=== PATIENT | female | born 1950 | race Caucasian/White ===

== ENCOUNTER → 2019-04-02 | Outpatient (CLI) | payer MEDICARE, OTHER ==
[~2019-04-02] MED LIST: CEP500 PO; CLON1 PO; ESTR-25 PO; FLUO-202 PO; IBUP200C72 PO; LOR5/325 PO; NAB500 PO; PER PO; PIO15 PO; SERT25TA87 PO; ZOL5 PO
--- NOTE | 2019-04-02 16:04 | RADIOLOGY IMAGING REPORT ---
FACILITY: [facility] - [place] PATIENT NAME: Brooke Swain : 1950 MR: [id number] V: [id number] EXAM DATE: ORDERING PHYSICIAN: LEONELA DORSEY TECHNOLOGIST: Location: [facility] [place] Patient: Brooke Swain : 1950 Visit/Account:[id number] Date of Sevice: 04/02/2019 DEXA Scan Clinical history: Postmenopausal state. Comparison: DEXA scan from 11/24/2012. LUMBAR SPINE: The bone mineral density (BMD) measured from L1-L4 correlates with a Z-score of 2.5 and a T-score of 1 which is Normal as defined by the World Health Organization. The corresponding risk of fracture in the lumbar spine is Not increased compared with a young adult reference population. This value has increased by 0.2 % since the prior study. More than 5% change is considered significant. HIP: Bone mineral density (BMD) measured in the LEFT total hip region correlates with a Z-score 0.7 and a T-score of -0.5 which is normal as defined by the World Health Organization. The corresponding risk of fracture in the hip is 1-2 t imes increased compared to a young adult reference population. This value has decrease by 5.4 % since the prior study. More than 5% change is considered significant. T score left femoral neck -1.2 Bone mineral density (BMD) measured in the Femoral Neck region measures 0.878 g/cm?. IMPRESSION: 1. Lumbar spine: Normal. There has been 0.2% increase in the bone mineral density since the previou s exam. 2. Left Total Hip: Normal. There has been 5.4% decrease in the bone mineral density since the previ ous exam. 3. Femoral Neck: Bone Mineral Density is 0.878 g/cm? The next DEXA scan of this patient should include the following sites: L1-L4 and the left hip. FRAX? WHO Fracture Risk Assessment Tool link: <http://www.shef.ac.uk/FRAX/tool.jsp?locationValue=9> PLEASE NOTE: 1) The World Health Organization defines low BMD as follows: T-score Normal > -1 Osteopenia < -1 and > -2.5 Osteoporosis < -2.5 without fractures Established osteoporosis < -2.5 with fractures 2) In general, you may wish to consider: Diagnosis Treatment Follow-up DEXA Normal BMD Prevention 2-3 years Osteopenia Prevention/therapy 1-2 years Osteoporosis Therapy Yearly 3) Fracture risk estimated from the T-score is more accurate for vertebral fractures (often spontane ous) than for hip fractures. Report Dictated By: Roxana Carlson MD at 04/02/2019 3:54 PM Report E-Signed By: Roxana Carlson MD at 04/02/2019 3:56 PM WSN:[email or web address]
== END ==
LOC: RAD 13:29
PROVIDERS: ATTEND Family Medicine
DX: Z13.820 Encounter for screening for osteoporosis (principal); Z78.0 Asymptomatic menopausal state
CPT/HCPCS: 77080